=== PATIENT | male | born 1975 | race Two or more races ===

== ENCOUNTER 2020-03-23 22:36 | Emergency (ER) | payer SELFPAY ==
[~2020-03-23] VITALS: Ht 182.9 cm; Wt 81.8 kg
--- NOTE | 2020-03-23 23:20 | PHYS DOC ---
Past Medical History Past Medical History: Diabetes-Type I Past Surgical History: Other Additional Past Surgical Histo: RIGHT FINGER SURGERY, INNER THIGH CYST REMOVAL Smoking Status: Current Every Day Smoker Alcohol Use: None General Adult EDM: Chief Complaint: ABSCESS HPI: HPI: Patient is a 45 year old male presents to the ED with a chief complaint of swelling to the right side of his neck. Patient states that it started as a blister 1 year ago but 4 months ago started getting bigger. Patient states that yesterday he tried to pop it and the pain increased and so came to the ER today. Patient denies fever, chills, nausea, vomiting, chest pain, shortness of breath. Patient does state that he has a history of diabetes and is an active smoker. Review of Systems: Review of Systems: Constitutional: Denies fever or chills. [] Eyes: Denies change in visual acuity. [] HENT: Swelling to the right side of his neck [] Respiratory: Denies cough or shortness of breath. [] Cardiovascular: Denies chest pain or edema. [] Integument: Denies rash. [] Heart Score: Risk Factors: Risk Factors: DM, Current or recent (<one month) smoker, HTN, HLP, family history of CAD, obesity. Risk Scores: Score 0 - 3: 2.5% MACE over next 6 weeks - Discharge Home Score 4 - 6: 20.3% MACE over next 6 weeks - Admit for Clinical Observation Score 7 - 10: 72.7% MACE over next 6 weeks - Early Invasive Strategies Current Medications: Current Medications Medications (Trade) Dose Ordered Sig/[facility] Start Time Stop Time Status Last Admin Dose Admin Sodium Chloride 1,000 ml @ 1,000 mls/hr 1X ONCE 03/23/20 23:30 03/24/20 00:29 03/23/20 23:16 1,000 MLS/HR Allergies: Allergies: Allergies Coded Allergies Type Severity Reaction Last Updated Verified No Known Drug Allergies 03/23/20 No Physical Exam: PE: Constitutional: Well developed, well nourished, no acute distress, non-toxic appearance. [] HENT: Normocephalic, atraumatic Eyes: EOMI Neck: Swelling to the right side of his neck with mild discharge swelling is hard Cardiovascular:Heart rate regular rhythm Extremities: No tenderness, ROM intact Neurologic: Alert and oriented X 3 Current Patient Data: Vital Signs: Vital Signs Date Time Temp Pulse Resp B/P (MAP) Pulse Ox O2 Delivery O2 Flow Rate FiO2 03/23/20 22:50 99.1 74 15 122/60 (80) 96 Room Air 99.1 EKG: EKG: [] Radiology/Procedures: Radiology/Procedures: [] Impression: CT NECK IMPRESSION: In the subcutaneous tissues of the right posterolateral neck is a peripherally enhancing collection measuring 2.2 cm, which may represent an abscess. Course & Med Decision Making: Course & Med Decision Making Pertinent Labs and Imaging studies reviewed. (See chart for details) Ordered labs, IV fluids, CT of the neck with IV contrast. WBC is elevated at 14.4. Patient is afebrile. Vital signs are stable. CT shows acute 0.2 cm abscess in the neck. Because a swelling has been present for at least 4 months and it is located in the neck I will not I&D it in the ER. Patient was treated with IV antibiotics and IV pain medication. Patient will be referred to general surgery Dr. Diggs. I will discharge patient home on oral antibiotics and oral pain medication. Discussed results and plan of care with patient. Patient is instructed to follow up with PCP in one to 2 days. Appropriate discharge instructions given to patient to return to the ED or to seek immediate medical evaluation. Patient is instructed to return to the ED if symptoms worsen or if any concerns. Dragon Disclaimer: Dragon Disclaimer: This electronic medical record was generated, in whole or in part, using a voice recognition dictation system. Departure Departure Impression: Primary Impression: Abscess of neck Disposition: 01 HOME, SELF-CARE Condition: GOOD Referrals: NO PCP (PCP) DELIA DIGGS MD PLEASE CALL FOR APPOINTMENT Patient Instructions: Abscess Additional Instructions: Discussed results and plan of care with patient. Patient is instructed to follow up with PCP in one to 2 days. Appropriate discharge instructions given to patient to return to the ED or to seek immediate medical evaluation. Patient is instructed to return to the ED if symptoms worsen or if any concerns. Scripts Hydrocodone/Apap 5-325 (NORCO 5-325 TABLET) 1 Each Tablet 1 TAB PO PRN Q6HRS PRN for PAIN, #15 TAB 0 Refills Prov: CHADWICK CHI DO 03/24/20 Clindamycin Hcl (CLINDAMYCIN HCL) 300 Mg Capsule 300 MG PO QID for 10 Days, #40 CAP Prov: CHADWICK CHI DO 03/24/20 Justicifation of Admission Dx: Justifications for Admission: Justification of Admission Dx: CHADWICK Meza DO Mar 23, 2020 23:20
[2020-03-23 23:23] LABS: BASO # 0.1 x10^3/uL (0.0-0.2); BASO % 1 % (0-3); EOS # 0.4 x10^3/uL (0.0-0.7); EOS % 3 % (0-3); HEMATOCRIT 40.8 % (39.0-53.0); HEMOGLOBIN 13.9 g/dL (13.0-17.5); LYMPH # 3.8 x10^3/uL (1.0-4.8); LYMPH % 27 % (24-48); MEAN CORPUSCULAR HEMOGLOBIN 32 pg (25-35); MEAN CORPUSCULAR HGB CONC 34 g/dL (31-37); MEAN CORPUSCULAR VOLUME 93 fL (79-100); MONO % 7 % (0-9); NEUT % 63 % (31-73); PLATELET COUNT 284 x10^3/uL (140-400); RED BLOOD COUNT 4.38 x10^6/uL (4.30-5.70); RED CELL DISTRIBUTION WIDTH 13.7 % (11.5-14.5); WHITE BLOOD COUNT 14.4 x10^3/uL (4.0-11.0)
[2020-03-23] MEDS ORDERED: IV NORMAL SALINE 1000ML BAG 1,000 ML IV ONE (23:30)
[2020-03-23 23:41] LABS: CALCIUM 8.9 mg/dL (8.5-10.1); CREATININE 0.8 mg/dL (0.7-1.3); GFR 105.5; POTASSIUM 3.6 mmol/L (3.5-5.1)
[2020-03-23 23:47] LABS: ALBUMIN 4.1 g/dL (3.4-5.0); ALBUMIN/GLOBULIN RATIO 1.2 (1.0-1.7); TOTAL BILIRUBIN 0.4 mg/dL (0.2-1.0); TOTAL PROTEIN 7.6 g/dL (6.4-8.2)
[2020-03-24] MEDS ORDERED: CONTRAST GIVEN. MC PRN (00:15)
[2020-03-24] MEDS ORDERED: IOHEXOL 300 MG/ML 100ML VIAL. IV ONE (00:30)
--- NOTE | 2020-03-24 00:32 | RAD ---
CT SOFT TISSUE NECK W/CONTRAST DATE: 03/23/2020 10:59 PM INDICATION: Reason: RIGHT NECK SWELLING, OMNI 300, 75 ML IV / Spl. Instructions: / History: TECHNIQUE: Axial computed tomography of the neck with intravenous contrast according to the standard neck protocol. 70 cc of Omnipaque 3 was administered intravenously. One or more of the following dose reduction techniques were utilized: Automated exposure control (AEC), Adjustment of mA and/or kV according to patient size, Use of iterative reconstruction technique such as ASiR, CT scan done according to ALARA and image gently/image wisely COMPARISON: None. FINDINGS: In the subcutaneous tissues of the right posterior lateral neck is a peripherally enhancing collection measuring 2.2 cm. This lies just posterior to the sternocleidomastoid muscle. Scattered subcentimeter lymph nodes are seen in the neck. None are pathologically enlarged or abnormally enhancing. The parotid, submandibular, and thyroid glands are normal. The muscles of the neck are normal. Vessels of the neck demonstrate normal course, caliber, and enhancement. The visualized aerodigestive tract is normal. The visualized posterior fossa and brain is unremarkable. The visualized orbits and paranasal sinuses are normal. The cervical spine is normal. Right apical paraseptal emphysema. IMPRESSION: In the subcutaneous tissues of the right posterolateral neck is a peripherally enhancing collection measuring 2.2 cm, which may represent an abscess. Electronically signed by: Adriel Benjamin MD (03/24/2020 12:29 AM) [facility]
[2020-03-24] MEDS ORDERED: MORPHINE SULFATE 4 MG/ML VIAL. IV ONE (01:00)
[2020-03-24] MEDS ORDERED: ONDANSETRON PF 4 MG/2 ML VIAL. IVP ONE (01:00)
[2020-03-24] MEDS ORDERED: CLINDAMYCIN 900MG PREMIX 50 ML IV ONE (01:00)
[2020-03-24] MEDS ORDERED: HYDR-3164 PO (01:30)
[2020-03-24] MEDS ORDERED: CLIN300C8 PO (01:30)
[2020-03-24 02:41] VITALS: BP 124/82
== END 2020-03-24 02:41 | disposition home or self-care (01) ==
LOC: ER 22:36
DX: L02.11 Cutaneous abscess of neck (principal); M54.2 Cervicalgia; R60.0 Localized edema; E10.9 Type 1 diabetes mellitus without complications; F17.200 Nicotine dependence, unspecified, uncomplicated; Z90.89 Acquired absence of other organs; Z98.890 Other specified postprocedural states
CPT/HCPCS: 36415; 70491; 80053; 85025; 96361; 96365; 99285; J3490; J7030; Q9967